=== PATIENT | female | born 1950 | race Caucasian/White ===

== ENCOUNTER → 2025-05-11 | Outpatient (CLI) | payer MEDICARE, SELFPAY ==
--- NOTE | 2025-05-11 15:11 | NEURO_ITS ---
NCS and/or EMG Patient Report Ordering Doctor: Janes Regan DATE OF SERVICE: 05/11/25 Carmen presents for electrodiagnostic testing of the left upper limb. She reports numbness and tingling in the left hand. Electrodiagnostic findings: Left median motor nerve demonstrates prolonged distal latency with normal amplitude and reduced conduction velocity. Left ulnar motor response is within normal limits. Normal median and ulnar F–waves. Absent left median sensory latency at the wrist. Needle EMG testing was p erformed in the left upper limb. All muscles tested showed no evidence of denervation with normal motor unit action potentials. Electrodiagnostic assessment: This is an abnormal study. 1. Electrodiagnostic findings suggestive of left-sided median mononeuropathy. This consistent with a mild to moderate left carpal tunnel syndrome.
== END | disposition home or self-care (01) ==
PROVIDERS: PCP Family Medicine; Referring Provider Orthopaedic Surgery; Visit Provider Orthopaedic Surgery
DX: R20.2 Paresthesia of skin (principal); M79.642 Pain in left hand; M79.645 Pain in left finger(s); Z71.3 Dietary counseling and surveillance
CPT/HCPCS: 95886; 95909